=== PATIENT | male | born 1965 | race Caucasian/White ===

== ENCOUNTER 2023-03-21 18:29 | Emergency (ER) | payer SELFPAY ==
[2023-03-21 18:50] VITALS: BP 135/87; PULSE 67; RESP 12; TEMP 36.9; O2SAT 98
--- NOTE | 2023-03-21 19:04 | ED.EYEPROB ---
HPI - Eye Problem General Chief complaint: Eye Problems Stated complaint: pain in left eye Time Seen by Provider: 03/21/23 18:55 Source: patient Mode of arrival: ambulatory Limitations: no limitations History of Present Illness HPI Narrative: Mr. Hopkins is a 58-year-old male patient presenting to the clinic today with left eye pain times 2-3 days. He denies any fever chills. He denies any visual changes. Has had purulent discharge coming from the left lower lid. Related Data Home Medications Medication Instructions Recorded Confirmed omeprazole 40 mg capsule,delayed 40 mg PO DAILY 10/18/19 03/21/23 release psyllium seed (sugar) oral powder 1 tbsp PO DAILY 10/18/19 03/21/23 (Metamucil (sugar) oral powder) Allergies Allergy/AdvReac Type Severity Reaction Status Date / Time tramadol Allergy Mild Nausea and Verified 03/21/23 18:41 Vomiting CRAMPING PMFSH Past Medical History Medical History BPH w urinary obs/LUTS Gastroesophageal reflux disease GERD (gastroesophageal reflux disease) (Unknown) Hx of carpal tunnel syndrome IBS (irritable bowel syndrome) Irritable bowel syndrome with constipation Umbilical hernia without mention of obstruction or gangrene Vitamin D deficiency, unspecified Surgical History Surgical History H/O inguinal hernia repair H/O shoulder surgery History of carpal tunnel release Hx of appendectomy Hx of left knee surgery Family History Family History Father Asthma Patient's father is Acute myocardial infarction Sibling Patient's sister is in good health Patient's brother is in good health Diabetes mellitus Mother Family history of malignant neoplasm Patient's mother is Family history of lung cancer Other Family history of cardiovascular disease Social History Social History Smoking status: Never smoker Smoking end date: 10/10/12 Alcohol intake: current Substance use type: marijuana Comments At the time of my signature, I reviewed and agree with the nursing past medical, surgical, social, and family history. There is no relevant family history pertinent to the patient complaint. Exam Narrative: General: Well-developed, well nourished, in no apparent distress Head: Normocephalic, atraumatic Eyes: Pupils equally round and reactive to light bilaterally, EOM intact, sclera and conjunctive clear, no discharge, left lower lid swollen with internal pustule with yellow discharge. Tender to palpation Ears: TMs intact and clear, ear canals clear, no drainage, grossly hearing normal. Nose: Nares patent, no discharge, no inflammation, no sinus tenderness. Mouth: Oropharynx without lesions or masses, good dentition, MMM. Neck: Supple, trachea midline, no enlargement of anterior or posterior cervical nodes, no thyroid masses or goiter palpable. Cardio: Regular rate and rhythm, s1 and s2 normal, no murmur appreciated. Resp: Clear to auscultation bilaterally anteriorly and posteriorly, no rhonchi, rales, wheezing or rubs Course Course Emergency Course: Portions of this record may have been created with voice recognition software. Level of Care: Express Care Visit Vital Signs Vital signs: Vital Signs Temperature 36.9 C 03/21/23 18:50 Pulse Rate 67 03/21/23 18:50 Respiratory Rate 12 03/21/23 18:50 Blood Pressure 135/87 03/21/23 18:50 Pulse Oximetry 98 03/21/23 18:50 Oxygen Delivery Room Air 03/21/23 18:50 Temperature 36.9 C 03/21/23 18:50 Pulse Rate 67 03/21/23 18:50 Respiratory Rate 12 03/21/23 18:50 Blood Pressure 135/87 03/21/23 18:50 Pulse Oximetry 98 03/21/23 18:50 Oxygen Delivery Room Air 03/21/23 18:50
== END 2023-03-21 19:09 | disposition home or self-care (01) ==
PROVIDERS: Emergency Provider Nurse Practitioner Family
DX: H00.025 Hordeolum internum left lower eyelid (principal); Z87.891 Personal history of nicotine dependence; F12.90 Cannabis use, unspecified, uncomplicated; N40.1 Benign prostatic hyperplasia with lower urinary tract symptoms; K21.9 Gastro-esophageal reflux disease without esophagitis
CPT/HCPCS: 99213; G0463